=== PATIENT | male | born 1975 | race Caucasian/White ===

== ENCOUNTER 2017-01-08 21:02 | Emergency (ER) | payer SELFPAY ==
[~2017-01-08] VITALS: Ht 167.6 cm; Wt 106.6 kg
[~2017-01-08 21:02] MED LIST: ACHD5005 PO; CPR500T PO; CYCL-97 PO; HYDR-3583 PO; IBP800T PO
--- OUTSIDE RECORDS SUMMARY | 2017-01-08 21:07 | XMS REPORT ---
Author Author ARIS HOLLAND [facility] Address Unknown Care Team Providers Care Law Examiner Name Role Phone ARIS HOLLAND Unavailable PROBLEMS Unknown Problems ALLERGIES Substance Reaction Event Type Date Status N.K.D.A. Unknown Non Drug Allergy Mar, Unknown SOCIAL HISTORY No smoking Hx information available PLAN OF CARE Activity Details Follow Up prn Reason:filling #12 VITAL SIGNS Blood pressure systolic 133 mmHg 2016-03-17 Blood pressure diastolic 82 mmHg 2016-03-17 MEDICATIONS No Known Medications RESULTS No Results PROCEDURES Procedure Date Ordered Related Diagnosis Body Site LTD ORAL EVALUATION - PROBLEM FOCUS Mar 17, 2016 INTRAORL-PERIAPICAL 1 FILM [id number] Mar 17, 2016 BITEWING - SINGLE FILM Mar 17, 2016 IMMUNIZATIONS No Known Immunizations
--- OUTSIDE RECORDS SUMMARY | 2017-01-08 21:07 | XMS REPORT ---
Author Author EDIE EAGLE Organization [employer] Address Unknown Phone Unavailable Care Team Providers Care Automotive Service Technician Name Role Phone EDIE EAGLE CP Unavailable Allergies, Adverse Reactions, Alerts Substance Reaction Event Type N.K.D.A. Info Not Available Non Drug Allergy Problems Problem Type Condition Code Onset Dates Condition Status Problem Cough 786.2 Active Problem Acute bronchitis 466.0 Active Problem Acute sinusitis, unspecified 461.9 Active Assessment Laceration of face without complication, initial encounter S01.81XA Active Medications Medication Code System Code Instructions Start Date End Date Status Dosage Bactrim DS [facility] [address]-03 800-160 MG Orally Twice a day Dec 17, 2015 Dec 27, 2015 1 tablet Procedures Procedure Coding System Code Date Office Visit, Est Pt., Level 3 CPT-4 85529 Dec 17, 2015 Vital Signs Date/Time: Dec 17, 2015 Cardiac Monitoring Heart Rate 86 bpm Weight 238 lbs Height 66 in BMI 38.41 Index Blood Pressure Diastolic 74 mmHg Blood Pressure Systolic 128 mmHg Results No Known Results Summary Purpose [employer] Submission
--- OUTSIDE RECORDS SUMMARY | 2017-01-08 21:07 | XMS REPORT | Clinical Summary ---
Author Author [facility] Organization [facility] Address Unknown Phone Unavailable Care Team Providers Care Hand Lens Polisher Name Role Phone PCP Unavailable Source Comments Some departments are not documenting in the electronic medical record. If you do not see the information that you expected, contact Release of Information in the Health Information Management department at [phone] for further assistance in locating additional records.[facility] Allergies No Known Allergies Current Medications Prescription Sig. Disp. Refills Start End Date Status Date acetaminophen (TYLENOL) Take 2 Tabs by mouth 60 Tab 0 01/29/20 Active 325 mg tablet every 4 hours as needed 14 for Pain. diclofenac sodium DR Take 1 Tab by mouth twice 60 Tab 2 10/14/19 Active (VOLTAREN) 75 mg tablet daily. 16 alendronate (FOSAMAX) 70 Take 1 Tab by mouth every 12 Tab 3 10/14/19 Active mg tablet 7 days. 16 Active Problems Problem Noted Date Acute pain of right shoulder 10/14/2015 Humerus fracture 01/28/2014 CMC (carpometacarpal joint) dislocation 01/28/2014 Subluxation of distal radial-ulnar joint 01/28/2014 Shoulder fracture 01/25/2014 Immunizations Name Dates Previously Given Next Due Flu Vaccine 03/01/2014 Quadrivalent=>3 Yo (Preservative Free) Family History Medical History Relation Name Comments Diabetes Father Hypertension Father Cancer Mother Diabetes Mother Hypertension Mother Relation Name Status Comments Father Alive Mother Alive Social History Tobacco Use Types Packs/Day Years Used Date Never Smoker Smokeless Tobacco: Never Used Tobacco Cessation: Counseling Given: Yes Alcohol Use Drinks/Week oz/Week Comments No 0 Standard 0.0 drinks or equivalent Sex Assigned at Date Recorded Not on file Last Filed Vital Signs Vital Sign Reading Time Taken Blood Pressure 146/91 10/14/2015 11:49 AM CDT Pulse 73 10/14/2015 11:49 AM CDT Temperature 36.4 C (97.5 F) 03/04/2014 3:43 PM CDT Respiratory Rate - - Oxygen Saturation 97% 03/04/2014 3:43 PM CDT Inhaled Oxygen - - Concentration Weight 102.1 kg (225 lb) 10/14/2015 11:49 AM CDT Height 167.6 cm (5' 6") 10/14/2015 11:49 AM CDT Body Mass Index 36.32 10/14/2015 11:49 AM CDT Plan of Treatment Health Maintenance Due Date Last Done Comments PHYSICAL (COMPREHENSIVE) 1983 EXAM PERTUSSIS VACCINE 1987 TETANUS VACCINE 1993 INFLUENZA VACCINE 01/07/2017 03/01/2014 Results Not on filefrom Last 3 Months
--- NOTE | 2017-01-08 21:43 | ED EENT ---
History of Present Illness General Chief Complaint: Dental Problems/Pain Stated Complaint: DENTAL PAIN Nursing Triage Note: reports dental pain in upper left gum, pain for 4-6 hours Source: patient Exam Limitations: no limitations History of Present Illness Time seen by provider: 21:37 Initial Comments The patient is a 41-year-old white male who reports that he began to experience rather severe pain in his left upper posterior molar about 4-6 hours prior to coming to the ER. He attempted to call his dentist and got a recorded message which stated that at if the problem were considered serious that the patient should go to a local ER. Timing/Duration: abrupt Location: dental Prearrival Treatment: no prearrival treatment Allergies and Home Medications Allergies Coded Allergies: No Known Drug Allergies (Unverified , 08/08/11) Home Medications No Active Prescriptions or Reported Meds Review of Systems Constitutional: see HPI Eyes: No Symptoms Reported Ears: No Symptoms Reported Mouth: other (dental pain) Throat: no symptoms reported Respiratory: no symptoms reported Cardiovascular: no symptoms reported Gastrointestinal: no symptoms reported Musculoskeletal: no symptoms reported Skin: no symptoms reported Neurological: No Symptoms Reported Hematologic/Lymphatic: No Symptoms Reported Immunological/Allergic: no symptoms reported Past Czbjulz-Kxmyms-Vwkxjn Hx Patient Social History Alcohol Use: Denies Use Recreational Drug Use: No Smoking Status: Never a Smoker Recent Foreign Travel: No Contact w/Someone Who Travel: No Recent Infectious Disease Expo: No Recent Hopitalizations: No Immunizations Up To Date Date of Influenza Vaccine: Feb 08, 2011 Seasonal Allergies Seasonal Allergies: No Surgeries History of Surgeries: Yes (DISLOCATED SHOULDER AND FRACTURED RIGHT HAND) Surgeries: Orthopedic Respiratory History of Respiratory Disorde: No Cardiovascular History of Cardiac Disorders: No Neurological History of Neurological Disord: No Neurological Disorders: Concussion Reproductive System Hx Reproductive Disorders: No Genitourinary History of Genitourinary Disor: No Gastrointestinal History of Gastrointestinal Di: No Musculoskeletal History of Musculoskeletal Dis: Yes (carpal tunnel surg. bilat, knee surg) Endocrine History of Endocrine Disorders: No HEENT History of HEENT Disorders: No Cancer History of Cancer: No Psychosocial History of Psychiatric Problem: No Integumentary History of Skin or Integumenta: No Blood Transfusions History of Blood Disorders: No Physical Exam Vital Signs Vital Sign - Last 12Hours 01/08/17 21:23 Temp 97.2 Pulse 77 Resp 20 B/P (MAP) 140/99 Pulse Ox 97 O2 Delivery Room Air General Appearance: moderate distress Eyes: bilateral eye normal inspection Ears: bilateral ear auricle normal Nose: normal inspection Mouth/Throat: dental tenderness Neck: full range of motion Cardiovascular: normal peripheral pulses, regular rate, rhythm, no edema, no gallop, no JVD, no murmur Respiratory: chest non-tender, lungs clear, normal breath sounds, no respiratory distress, no accessory muscle use Progress/Results/Core Measures Results/Orders My Orders Orders - SAIMA WALTON MD Rx-Hydrocodone/Apap 5-325 Mg (Rx-Vicodin (01/08/17 22:00) Vital Signs/I&O Vital Sign - Last 12Hours 01/08/17 21:23 Temp 97.2 Pulse 77 Resp 20 B/P (MAP) 140/99 Pulse Ox 97 O2 Delivery Room Air Blood Pressure Mean: 113 Departure Impression Impression: Primary Impression: Dental caries Disposition: 01 HOME, SELF-CARE Condition: Stable/Unchanged Departure-Patient Inst. Decision time for Depature: 21:54 Referrals: NO,LOCAL PHYSICIAN (PCP) Primary Care Physician Patient Instructions: Tooth Decay, Adult (DC) Add. Discharge Instructions: All discharge instructions reviewed with patient and/or family. Voiced understanding. Use the lidocaine jelly as demonstrated. Take pain med if severe pain Scripts Hydrocodone/Acetaminophen (Left Hand 7.5-325 Tablet) 1 Each Tablet 1 EACH PO 4 times a day, #10 TAB Prov: SAIMA WALTON MD 01/08/17 Images Mouth/Nose 1 - Caries 2 - Caries SAIMA WALTON MD Jan 08, 2017 21:43
[2017-01-08] MEDS ORDERED: LIDOCAINE 2% VISCOUS 15 ML UDC ONE (21:49)
[2017-01-08] MEDS ORDERED: HYDR-756 PO (21:53)
[2017-01-08] MEDS ORDERED: RX-HYDROCODONE/APAP 5/325 MG #4 TAB PK PO PRN (22:00)
[2017-01-08 22:03] VITALS: BP 140/99
== END 2017-01-08 22:03 | disposition home or self-care (01) ==
LOC: EDUNIT# 21:02 → ER 21:04
DX: K02.9 Dental caries, unspecified (principal)
CPT/HCPCS: 99283

== ENCOUNTER 2017-06-26 00:07 | Emergency (ER) | payer SELFPAY ==
[~2017-06-26] VITALS: Ht 167.6 cm; Wt 106.6 kg
[~2017-06-26 00:07] MED LIST changes: +HYDR-756 PO
--- OUTSIDE RECORDS SUMMARY | 2017-06-26 00:13 | XMS REPORT ---
Author Author EDIE EAGLE [facility] Address [address] [place] [address] Care Team Providers Care Family Support Specialist Name Role Phone EDIE EAGLE Unavailable PROBLEMS Unknown Problems ALLERGIES No Known Allergies SOCIAL HISTORY Never Assessed PLAN OF CARE VITAL SIGNS Height 66 in 2016-06-18 Weight 250 lbs 2016-06-18 Temperature 97.6 degrees Fahrenheit 2016-06-18 Heart Rate 76 bpm 2016-06-18 Respiratory Rate 20 2016-06-18 BMI 40.35 kg/m2 2016-06-18 Blood pressure systolic 128 mmHg 2016-06-18 Blood pressure diastolic 70 mmHg 2016-06-18 MEDICATIONS Medication Instructions Dosage Frequency Start Date End Date Duration Status PredniSONE 20 MG Orally Once a day 2 tablets 24h Jun, Jun, 5 days Active RESULTS No Results PROCEDURES No Known procedures IMMUNIZATIONS No Known Immunizations MEDICAL (GENERAL) HISTORY Type Description Date Medical History surgery requiring rods, pins or screws Medical History head injury- concussions Surgical History multiple orthopedic surgery
--- OUTSIDE RECORDS SUMMARY | 2017-06-26 00:13 | XMS REPORT | Continuity of Care Document ---
Author Author [facility] Address Unknown Phone Unavailable Allergies Active Description Code Type Severity Reaction Onset Reported/Identified Relationship to Patient Clinical Status Yes No Known Drug Allergies [id number] Drug Allergy Unknown N/A 08/08/2011 Medications There is no data. Problems Date Dx Coded Attending Type Code Diagnosis Diagnosed By 07/03/2011 CAROLANN WALLACE MD 466.0 BRONCHITIS, ACUTE 08/08/2011 Ot 592.1 08/08/2011 Ot 789.09 12/10/2011 Ot 276.51 12/10/2011 Ot 276.9 12/10/2011 Ot 790.5 12/10/2011 Ot 846.0 12/10/2011 Ot 847.0 12/10/2011 Ot 850.5 12/10/2011 Ot 922.1 12/10/2011 Ot E000.8 12/10/2011 Ot E016.2 12/10/2011 Ot E849.0 12/10/2011 Ot E882 12/10/2011 Ot V06.1 07/13/2013 CAROLANN WALLACE MD 461.9 ACUTE SINUSITIS UNSPECIFIED 07/13/2013 CAROLANN WALLACE MD 786.2 COUGH 01/25/2014 EVELYN MENJIVAR MD Ot 812.00 01/25/2014 EVELYN MENJIVAR MD Ot 833.01 01/25/2014 EVELYN MENJIVAR MD Ot 833.04 01/25/2014 EVELYN MENJIVAR MD Ot E000.8 01/25/2014 EVELYN MENJIVAR MD Ot E881.0 03/20/2014 ROCHELLE BLANDON, HATTIE Hussein Ot 998.89 03/20/2014 HATTIE BYRD MD Ot 998.89 03/22/2014 ROCHELLE BLANDON, HATTIE Hussein Ot 833.01 03/22/2014 ROCHELLE BLANDON, HATTIE Hussein Ot 833.04 03/22/2014 HATTIE BYRD MD Ot V57.21 04/03/2014 ROCHELLE BLANDON, HATTIE A Ot 998.89 04/03/2014 ROCHELLE BLANDON, HATTIE A Ot 833.01 04/03/2014 ROCHELLE BLANDON, HATTIE A Ot 833.04 04/03/2014 ROCHELLE BLANDON, HATTIE A Ot V57.21 04/03/2014 ROCHELLE BLANDON, HATTIE A Ot 833.01 04/03/2014 ROCHELLE BLANDON, HATTIE A Ot 833.04 04/03/2014 ROCHELLE BLANDON, HATTIE A Ot V57.21 04/08/2014 ROCHELLE BLANDON, HATTIE A Ot 833.01 04/08/2014 ROCHELLE BLANDON, HATTIE A Ot 833.04 04/08/2014 ROCHELLE BLANDON, HATTIE A Ot V57.21 04/11/2014 ROCHELLE BLANDON, HATTIE A Ot 833.01 04/11/2014 ROCHELLE BLANDON, HATTIE A Ot 833.04 04/11/2014 ROCHELLE BLANDON, HATTIE A Ot V57.21 04/11/2014 ROCHELLE BLANDON, HATTIE A Ot 833.01 04/11/2014 ROCHELLE BLANDON, HATTIE A Ot 833.04 04/11/2014 ROCHELLE BLANDON, HATTIE A Ot V57.21 04/12/2014 ROCHELLE BLANDON, HATTIE A Ot 833.01 04/12/2014 ROCHELLE BLANDON, HATTIE A Ot 833.04 04/12/2014 ROCHELLE BLANDON, HATTIE A Ot V57.21 04/12/2014 ROCHELLE BLANDON, HATTIE A Ot 833.01 04/12/2014 ROCHELLE BLANDON, HATTIE A Ot 833.04 04/12/2014 ROCHELLE BLANDON, HATTIE A Ot V57.21 04/22/2014 ROCHELLE BLANDON, HATTIE A Ot 833.01 04/22/2014 ROCHELLE BLANDON, HATTIE A Ot 833.04 04/22/2014 ROCHELLE BLANDON, HATTIE A Ot V57.21 04/22/2014 ROCHELLE BLANDON, HATTIE A Ot 833.01 04/22/2014 ROCHELLE BLANDON, HATTIE A Ot 833.04 04/22/2014 ROCHELLE BLANDON, HATTIE A Ot V57.21 04/23/2014 ROCHELLE BLANDON, HATTIE A Ot 998.89 04/29/2014 ROCHELLE BLANDON, HATTIE A Ot 833.01 04/29/2014 ROCHELLE BLANDON, HATTIE A Ot 833.04 04/29/2014 ROCHELLE BLANDON, HATTIE A Ot V57.21 05/17/2014 ROCHELLE BLANDON, HATTIE A Ot 833.01 05/17/2014 ROCHELLE BLANDON, HATTIE A Ot 833.04 05/17/2014 ROCHELLE BLANDON, HATTIE A Ot V57.21 05/17/2014 ROCHELLE BLANDON, HATTIE A Ot 833.01 05/17/2014 ROCHELLE BLANDON, HATTIE A Ot 833.04 05/17/2014 ROCHELLE BLANDON, HATTIE A Ot V57.21 05/22/2014 ROCHELLE BLANDON, HATTIE A Ot 998.89 05/22/2014 ROCHELLE BLANDON, HATTIE A Ot 833.01 05/22/2014 ROCHELLE BLANDON, HATTIE A Ot 833.04 05/22/2014 ROCHELLE BLANDON, HATTIE A Ot V57.21 06/04/2014 ROCHELLE BLANDON, HATTIE A Ot 998.89 06/11/2014 ROCHELLE BLANDON, HATTIE A Ot 833.01 06/11/2014 ROCHELLE BLANDON, HATTIE A Ot 833.04 06/11/2014 ROCHELLE BLANDON, HATTIE A Ot V57.21 06/11/2014 ROCHELLE BLANDON, HATTIE A Ot 833.01 06/11/2014 ROCHELLE BLANDON, HATTIE A Ot 833.04 06/11/2014 ROCHELLE BLANDON, HATTIE A Ot V57.21 06/17/2014 ROCHELLE BLANDON, HATTIE A Ot 833.01 06/17/2014 ROCHELLE BLANDON, HATTIE A Ot 833.04 06/17/2014 ROCHELLE BLANDON, HATTIE A Ot V57.21 06/17/2014 ROCHELLE BLANDON, HATTIE A Ot 833.01 06/17/2014 ROCHELLE BLANDON, HATTIE A Ot 833.04 06/17/2014 ROCHELLE BLANDON, HATTIE A Ot V57.21 06/21/2014 ROCHELLE BLANDON, HATTIE Hussein Ot 833.01 06/21/2014 ROCHELLE BLANDON, HATTIE Hussein Ot 833.04 06/21/2014 ROCHELLE BLANDON, HATTIE Hussein Ot V57.21 06/25/2014 ROCHELLE BLANDON, HATTIE Hussein Ot V57.21 06/25/2014 ROCHELLE BLANDON, HATTIE Hussein Ot V57.21 06/27/2014 ROCHELLE BLANDON, HATTIE Hussein Ot V57.21 06/27/2014 ROCHELLE BLANDON, HATTIE Hussein Ot V57.21 07/29/2014 ROCHELLE BLANDON, HATTIE Hussein Ot V57.21 07/29/2014 ROCHELLE BLANDON, HATTIE Hussein Ot V57.21 08/15/2014 ROCHELLE BLANDON, HATTIE Hussein Ot V57.21 08/15/2014 ROCHELLE BLANDON, HATTIE Hussein Ot V58.43 08/31/2014 CHRISTIANO MALDONADO APRN Ot 845.00 SPRAIN OF ANKLE NOS 08/31/2014 CHRISTIANO MALDONADO ONBOARDING SPECIALIST Ot 959.7 LOWER LEG INJURY NOS 08/31/2014 CHRISTIANO MALDONADO ONBOARDING SPECIALIST Ot E000.8 OTHER EXTERNAL CAUSE STATUS 08/31/2014 CHRISTIANO MALDONADO APRN Ot E928.9 ACCIDENT NOS 01/10/2017 SAIMA WALTON MD Ot K02.9 DENTAL CARIES, UNSPECIFIED 01/10/2017 SAIMA WALTON MD Ot K08.89 OTHER SPECIFIED DISORDERS OF TEETH AND S Procedures There is no data. Results There is no data. Encounters ACCT No. Visit Date/Time Discharge Status Pt. Type Provider Facility Loc./Unit Complaint [id number] 07/13/2013 08:46:00 07/13/2013 23:59:59 CLS Outpatient CAROLANN WALLACE MD [id number] 01/08/2017 21:04:00 01/08/2017 22:03:00 DIS Outpatient SAIMA WALTON MD [facility] DENTAL PAIN [id number] 08/31/2014 14:11:00 08/31/2014 16:00:00 DIS Emergency CHRISTIANO MALDONADO APRN [facility] LEFT LEG PAIN [id number] 06/25/2014 09:04:00 06/25/2014 23:59:59 CLS Outpatient HATTIE BYRD MD [facility] [id number] 06/14/2014 09:01:00 06/17/2014 00:01:00 DIS Outpatient HATTIE BYRD MD [facility] [id number] 06/05/2014 00:36:00 06/05/2014 23:59:59 CLS Preadmit HATTIE BYRD MD [facility] [id number] 03/26/2014 13:47:00 06/04/2014 00:01:00 DIS Outpatient HATTIE BYRD MD [facility] [id number] 01/25/2014 14:26:00 01/25/2014 18:54:00 DIS Inpatient EVELYN MENJIVAR MD [facility] [id number] 12/10/2011 01:30:00 Document Registration [id number] 08/08/2011 14:23:00 Document Registration
--- OUTSIDE RECORDS SUMMARY | 2017-06-26 00:13 | XMS REPORT | Clinical Summary ---
Author Author [facility] Organization [facility] Address Unknown Phone Unavailable Care Team Providers Care Product Marketing Intern Name Role Phone No Pcp, Na PCP Unavailable Malgorzata Camarillo RN Unavailable Unavailable Karen Sheehan RN Unavailable Unavailable Maikol Zuluaga MD Unavailable Akiko Leslie MD Unavailable Dannielle Schmidt RN Unavailable Unavailable Anne Serna RN Unavailable Unavailable Serjio Van MD Unavailable Source Comments Some departments are not documenting in the electronic medical record. If you do not see the information that you expected, contact Release of Information in the Health Information Management department at [phone] for further assistance in locating additional records.[facility] Allergies No Known Allergies Current Medications [...] VACCINE 1987 TETANUS VACCINE 1993 INFLUENZA VACCINE 12/07/2016 03/01/2014 Results Not on filefrom Last 3 Months
[2017-06-26] MEDS ORDERED: methylPREDNISolone 125 MG (Solu-MEDROL) VIAL IM STA (00:43)
[2017-06-26] MEDS ORDERED: cefTRIAXone 1 GM (ROCEPHIN) VIAL IM ONE (00:45)
[2017-06-26] MEDS ORDERED: PROMETHAZINE/ CODEINE SYRUP 5 ML UDC PO ONE (00:45)
[2017-06-26] MEDS ORDERED: LIDOCAINE 1% INJ 20 ML (XYLOCAINE) VIAL INJ ONE (00:45)
[2017-06-26] MEDS ORDERED: LIDOCAINE 1% INJ 50 ML (XYLOCAINE) VIAL ONE (00:51)
--- NOTE | 2017-06-26 00:51 | ED Cough/URI ---
General Chief Complaint: Cough/Cold/Flu Symptoms Stated Complaint: FLU SYM PAIN FROM EAR TO NECK Nursing Triage Note: Patient reports having a cough for over a week and being evaluated diagnosed with influenza but was told that he was out of the window for tamiflu and was given tessalon pearls, patient reports that tonight he developed pain in his L ear and L neck Source: patient History of Present Illness Date Seen by Provider: Jun 26, 2017 Time Seen by Provider: 00:20 Initial Comments PT STATES HE HAS BEEN SICK SINCE LAST Tuesday06/17/17 HAS HAD HARSH NON-PRODUCTIVE COUGH SHORTNESS OF BREATH WITH COUGHING ONLY HAS HAD SUBJECTIVE FEVER AND CHILLS C/O HEADACHE AND BODY ACHES SEEN AT [facility] ON Tuesday06/21/17 FOR THIS PROBLEM AND STATES HE TESTED + FOR INFLUENZA ( DOES NOT REMEMBER WHAT TYPE )--STATES HE WAS OUTSIDE OF WINDOW FOR TREATMENT WITH TAMIFLU, BUT WAS GIVEN RX FOR TESSALON, WHICH IS NOT HELPING WITH COUGH TONIGHT HE BEGAN HAVING SEVERE PAIN IN LEFT EAR, RADIATING DOWN LEFT SIDE OF NECK HAS NOT TAKEN ANYTHING FOR SYMPTOMS EXCEPT THE TAMIFLU PCP: [facility] Allergies and Home Medications Allergies Coded Allergies: No Known Drug Allergies (Unverified , 08/08/11) Home Medications Cefdinir 300 Mg Capsule, 300 MG PO BID, #20 Prescribed by: JOHANNA PARISI on 06/26/17 0119 Hydrocodone/Acetaminophen 1 Each Tablet, 1 EACH PO 4 times a day, #10 Prescribed by: SAIMA WALTON on 01/08/17 2153 Methylprednisolone 4 Mg Tab.ds.pk, 4 MG PO UD, #1 Prescribed by: JOHANNA PARISI on 06/26/17 0119 Promethazine HCl/Codeine 118 Ml Syrup, 5 ML PO Q4H, #120 Prescribed by: JOHANNA PARISI on 06/26/17 0119 Constitutional: no symptoms reported EENTM: see HPI, ear pain, nose congestion Respiratory: see HPI, cough, short of breath, No wheezing Cardiovascular: no symptoms reported Gastrointestinal: no symptoms reported Genitourinary: no symptoms reported Musculoskeletal: see HPI (BODY ACHES) Skin: no symptoms reported Psychiatric/Neurological: See HPI, Headache Hematologic/Lymphatic: No Symptoms Reported Immunological/Allergic: no symptoms reported Past Lpvuspn-Mpojpe-Zblrnp Hx Patient Social History Alcohol Use: Denies Use Recreational Drug Use: No Smoking Status: Never a Smoker Recent Foreign Travel: No Contact w/Someone Who Travel: No Recent Infectious Disease Expo: No Recent Hopitalizations: No Physical Abuse: No Sexual Abuse: No Immunizations Up To Date Date of Influenza Vaccine: Feb 08, 2011 Seasonal Allergies Seasonal Allergies: No Surgeries History of Surgeries: Yes (FX AND DISLOCATED RIGHT SHOULDER WITH ORIF; LEFT WRIST FX/ORIF WITH HARDWARE REMOVAL; BILATERAL KNEE SCOPES, BILATERAL CARPAL TUNNEL) Surgeries: Orthopedic Respiratory History of Respiratory Disorde: No Cardiovascular History of Cardiac Disorders: No Neurological History of Neurological Disord: Yes Neurological Disorders: Concussion Reproductive System Hx Reproductive Disorders: No Genitourinary History of Genitourinary Disor: No Gastrointestinal History of Gastrointestinal Di: No Musculoskeletal History of Musculoskeletal Dis: Yes (carpal tunnel surg. bilat, knee surg) Musculoskeletal Disorders: Fractures Endocrine History of Endocrine Disorders: No HEENT History of HEENT Disorders: No Cancer History of Cancer: No Psychosocial History of Psychiatric Problem: No Suicide Risk Score: 0 Integumentary History of Skin or Integumenta: No Blood Transfusions History of Blood Disorders: No Physical Exam Vital Signs Vital Signs - First Documented 06/26/17 00:33 Temp 98.0 Pulse 84 Resp 18 B/P (MAP) 167/105 (125) Pulse Ox 98 Capillary Refill : Less Than 3 Seconds General Appearance: WD/WN, no apparent distress, other (FREQUENT HARSH COUGH) HEENT: PERRL/EOMI, TM abnormal (L) (LEFT TM INFLAMED, WITH QUESTIONABLE EFFUSION), other (MILD NASAL MUCOSAL EDEMA AND CLEAR RHINORRHEA) Neck: full range of motion, supple, lymphadenopathy (L) Respiratory: normal breath sounds, no respiratory distress, no accessory muscle use Cardiovascular: regular rate, rhythm, no murmur Extremities: normal inspection Neurologic/Psychiatric: admitting counselor II-XII nml as tested, no motor/sensory deficits, alert, normal mood/affect, oriented x 3 Skin: normal color, warm/dry, No rash Progress/Results/Core Measures Suspected Sepsis Recent Fever Within 48 Hours: No Infection Criteria Present: None New/Unexplained Altered Menta: No Sepsis Screen: No Definite Risk Sepsis Diagnosis: SIRS Temperature:98.0 Pulse: 84 Respiratory Rate: 18 Blood Pressure 167 /105 Mean: 125 Results/Orders My Orders Orders - JOHANNA PARISI DO Ceftriaxone Injection (Rocephin Injectio (06/26/17 00:45) Methylprednisolone Sod Succ (Solu-Medrol (06/26/17 00:43) Lidocaine 1% Injection (Xylocaine 1% Inj (06/26/17 00:45) Promethazine/ Codeine Syrup (Phenergan W (06/26/17 00:45) Lidocaine 1% (Xylocaine 1%) (06/26/17 00:51) Medications Given in ED Current Medications Medications Dose Ordered Sig/Evgeny Route Start Time Stop Time Status Last Admin Dose Admin Ceftriaxone Sodium 1,000 mg ONCE ONCE IM 06/26/17 00:45 06/26/17 00:46 DC 06/26/17 01:16 1,000 MG Lidocaine HCl 50 ml STK-MED ONCE .ROUTE 06/26/17 00:51 06/26/17 00:54 DC 06/26/17 01:10 2.1 ML Promethazine HCl/ Codeine 5 ml ONCE ONCE PO 06/26/17 00:45 06/26/17 00:46 DC 06/26/17 01:10 5 ML Vital Signs/I&O Vital Sign - Last 12Hours 06/26/17 00:33 Temp 98.0 Pulse 84 Resp 18 B/P (MAP) 167/105 (125) Pulse Ox 98 Capillary Refill : Less Than 3 Seconds Blood Pressure Mean: 125 Departure Impression Impression: Primary Impression: Influenza Additional Impression: Left otitis media Disposition: 01 HOME, SELF-CARE Condition: Stable Departure-Patient Inst. Referrals: [facility] (PCP) Primary Care Physician NO,LOCAL PHYSICIAN (Family) Primary Care Physician Patient Instructions: Ear Infections (Otitis Media) (DC), Flu, Adult (DC) Add. Discharge Instructions: TAKE TESSALON NEEDED FOR COUGH MUCINEX DM FOR COUGH TYLENOL 1 GRAM NEEDED FOR PAIN OR FEVER LOTS OF CLEAR LIQUIDS FOLLOW UP WITH YOUR DR IN 3-4 DAYS IF NO BETTER All discharge instructions reviewed with patient and/or family. Voiced understanding. Scripts Promethazine HCl/Codeine (Promethazine-Codeine Syrup) 118 Ml Syrup 5 ML PO Q4H for Cough, #120 ML Prov: ISAKDOMA K DO 06/26/17 Methylprednisolone (Medrol) 4 Mg Tab.ds.pk 4 MG PO UD, #1 PKG Prov: ISAK,JOHANNA K DO 06/26/17 Cefdinir (Cefdinir) 300 Mg Capsule 300 MG PO BID for FOR INFECTION, #20 CAP Prov: JOHANNA PARISI DO 06/26/17 JOHANNA PARISI DO Jun 26, 2017 00:51
[2017-06-26] MEDS ORDERED: CODE118S2 PO (01:19)
[2017-06-26] MEDS ORDERED: CEFD300C3 PO (01:19)
[2017-06-26] MEDS ORDERED: METH4TAB PO (01:19)
[2017-06-26 01:27] VITALS: BP 154/98
== END 2017-06-26 01:27 | disposition home or self-care (01) ==
LOC: EDUNIT# 00:07 → ER 00:09
DX: J11.1 Influenza due to unidentified influenza virus with other respiratory manifestations (principal); H66.92 Otitis media, unspecified, left ear; Z79.52 Long term (current) use of systemic steroids
CPT/HCPCS: 99284